=== PATIENT | male | born 1950 | race Caucasian/White ===

== ENCOUNTER 2016-12-09 05:02 | Emergency (ER) | payer OTHER, BC ==
[2016-12-09 05:11] VITALS: BMI 32.8
[2016-12-09 05:32] VITALS: BP 163/70
[2016-12-09] MEDS ORDERED: ZOFRAN INJ 4 MG VIAL IVP ONE (05:34)
[2016-12-09] MEDS ORDERED: ZOFRAN INJ 4 MG VIAL ONE (05:36)
[2016-12-09 05:43] LABS: BASOPHILS % (AUTO) 0.4 % (0.2-1.0); EOSINOPHILS # (AUTO) 0.1 x10^3/uL (0.0-0.2); EOSINOPHILS % (AUTO) 1.3 % (0.9-2.9); HEMATOCRIT 42.3 % (42.0-54.0); HEMOGLOBIN 14.6 g/dL (13.5-18.0); LYMPHOCYTES # (AUTO) 0.9 X10^3/uL (1.3-2.9); LYMPHOCYTES % (AUTO) 17.1 % (21.0-51.0); MEAN CORPUSCULAR HEMOGLOBIN 30.4 pg (27.0-34.0); MEAN CORPUSCULAR HGB CONC 34.5 g/dL (33.0-35.0); MEAN CORPUSCULAR VOLUME 88.1 fL (80.0-100.0); MEAN PLATELET VOLUME 8.4 fL (7.4-11.0); MONOCYTES # (AUTO) 0.4 x10^3/uL (0.3-0.8); MONOCYTES % (AUTO) 7.1 % (0.0-13.0); NEUTROPHILS # (AUTO) 4.1 x10^3/uL (2.2-4.8); NEUTROPHILS % (AUTO) 74.1 % (42.0-75.0); PLATELET COUNT 147 X10^3/uL (150.0-450.0); RED BLOOD COUNT 4.81 X10^6/uL (4.7-6.0); RED CELL DISTRIBUTION WIDTH 13.1 % (11.6-16.5); WHITE BLOOD COUNT 5.5 X10^3/uL (3.6-10.0)
[2016-12-09 05:53] LABS: ALANINE AMINOTRANSFERASE 27 Units/L (12-78); ALKALINE PHOSPHATASE 66 Units/L (46-116); ASPARTATE AMINO TRANSFERASE 23 Units/L (15-37); BLOOD UREA NITROGEN 29 mg/dL (7-18); CALCIUM 8.4 mg/dL (8.5-10.1); CARBON DIOXIDE 28.8 mmol/L (21-32); CHLORIDE 103 mmol/L (98-107); COR NA(FOR HYPERGLY) 143 mmol/L (136-145); CREATININE 1.09 mg/dL (0.70-1.30); GLUCOSE 184 mg/dL (65-99); SODIUM 141 mmol/L (136-145); TOTAL PROTEIN 7.3 g/dL (6.4-8.2); eGFR BLACK RACES > 60 (>60); eGFR NON BLACK RACES > 60 (>60)
[2016-12-09] MEDS ORDERED: ANTIVERT TAB 25 MG ONE (05:53)
[2016-12-09] MEDS ORDERED: NS 500 ML IV 500 ML IV ONE ×2 (05:53→06:01)
--- NOTE | 2016-12-09 05:58 | DR.GENAD ---
HPI - PCP Primary Care Physician: sanjay - HPI Comment HPI Comment: Pt awakened with nausea and spinning sensation this am ~230. He went fishing yesterday and sweated tremendously. He also has been recently diagnosed with new onset diabetes. He denies fever, chill, vomiting and diarrhea. - Complaint/Symptoms Chief Complaint Doctors Comments: "I'm dizzy and nauseated." Chief Complaint:: weak nauseated - Nurses notes reviewed Nurses Notes Review: Yes - Source History Provided: Patient - Mode of Arrival Mode of Arrival: Ambulatory - Timing Onset of Chief Complaint: 12/09/16 Came on: Suddenly, On Awakening - Duration Duration: Since Onset How lon Duration: Hours - Severity Severity: Moderate - Modifying Factors Worsens:: eyes are open Improves:: closed eye and rest PMH - PMH Past Medical History: Yes Past Medical History: Diabetes, Hypertension Past Surgical History: Yes Surgical History: Joint Replacement, Ortho Surgery - Family History History of Family Medical Conditions: Yes Family Medical History: Diabetes Mellitus, Cancer - Social History Does patient currently use any type of tobacco product: No Have you used tobacco products in the last 12 months: No Type of Tobacco Use: None Does any household member use tobacco: No Alcohol Use: None Do you use any recreational Drugs:: No Lives With: Spouse Lives Where: Home - infectious screening In the last 2 months have you had wt loss of >10#?: NO Have you had fever, night sweats or hemotysis?: No Have you traveled outside the country in the last 6 months?: No Isolation: Standard ROS - Review of Systems Constitutional: No Symptoms Reported Eyes: Blurred Vision ENTM: No Symptoms Reported Respiratoy: No Symptoms Reported Cardiovascular: No Symptoms Reported Gastrointestinal/Abdominal: See HPI, Nausea Genitourinary: No Symptoms Reported Neurological: Dizziness Musculoskeletal: No Symptoms Reported Integumentary: No Symptoms Reported Hematologic/Lymphatic: No Symptoms Reported Endocrine: No Symptoms Reported Psychiatric: No Symptoms Reported All Other Systems: Reviewed and Negative PE - Vital Signs Vitals: Temperature 97.6 F Pulse Rate [Standing] 56 Pulse Rate [Sitting] 59 Pulse Rate [Lying] 57 Pulse Rate 64 Respiratory Rate 20 Blood Pressure [Right Arm] 152/87 Blood Pressure [Standing] 166/66 Blood Pressure [Sitting] 176/77 Blood Pressure [Lying] 163/70 Blood Pressure 108/92 O2 Sat by Pulse Oximetry 96 - General Limitations: No Limitations General Appearance: Alert, In No Apparent Distress - Head Head Exam: Normal Inspection - Eyes Eye exam: Normal Appearance - ENT TM/Canal Exam: Left Normal Nose Exam: Normal Nose Exam Mouth Exam: Normal Inspection Throat Exam: Normal Inspection - Neck Neck Exam: Normal Inspection, Full ROM, Trachea Midline, Other (Right carotid bruit) - Chest Chest Inspection: Normal Inspection, Symmetric Chest Wall Rise - Respiratory Respiratory Exam: Normal Lung Sounds Bilat Respiratory Exam: Bilateral Clear to Auscultation - Cardiovascular Cardiovascular Exam: Regular Rate, Normal Rhythm, Normal Heart Sounds, Systolic Murmur - Abdominal Exam Abdominal Exam: Normal Inspection, Normal Bowel Sounds, Soft - Extremities Extremities Exam: Normal Inspection - Back Back Exam: Normal Inspection - Neurologic Neurological Exam: Alert, Oriented X3, CN II-XII Intact - Psychiatric Psychiatric Exam: Normal Affect, Normal Mood - Skin Skin Exam: Warm, Dry, Intact, Normal Color MDM - Differential Diagnosis Differential Diagnosis: vertigo, otitis, gastroenteritis, dehydration Course - Reevaluation 1st: Improved ROR - Labs Reviewed Laboratory Results Reviewed?: Yes Result Diagrams: 12/09/16 05:10 12/09/16 05:10 Laboratory: WBC 5.5 X10^3/uL (3.6-10.0) 12/09/16 05:10 RBC 4.81 X10^6/uL (4.7-6.0) 12/09/16 05:10 Hgb 14.6 g/dL (13.5-18.0) 12/09/16 05:10 Hct 42.3 % (42.0-54.0) 12/09/16 05:10 MCV 88.1 fL (80.0-100.0) 12/09/16 05:10 MCH 30.4 pg (27.0-34.0) 12/09/16 05:10 MCHC 34.5 g/dL (33.0-35.0) 12/09/16 05:10 RDW 13.1 % (11.6-16.5) 12/09/16 05:10 Plt Count 147 X10^3/uL (150.0-450.0) L 12/09/16 05:10 MPV 8.4 fL (7.4-11.0) 12/09/16 05:10 Neut % 74.1 % (42.0-75.0) 12/09/16 05:10 Lymph % 17.1 % (21.0-51.0) L 12/09/16 05:10 [place] % 7.1 % (0.0-13.0) 12/09/16 05:10 Eos % 1.3 % (0.9-2.9) 12/09/16 05:10 Baso % 0.4 % (0.2-1.0) 12/09/16 05:10 Neut # 4.1 x10^3/uL (2.2-4.8) 12/09/16 05:10 Lymph # 0.9 X10^3/uL (1.3-2.9) L 12/09/16 05:10 [place] # 0.4 x10^3/uL (0.3-0.8) 12/09/16 05:10 Eos # 0.1 x10^3/uL (0.0-0.2) 12/09/16 05:10 Baso # 0.0 X10^3/uL (0.0-0.1) 12/09/16 05:10 Absolute Nucleated RBC 0.0 /100WBC 12/09/16 05:10 Sodium 141 mmol/L (136-145) 12/09/16 05:10 Corrected Sodium 143 mmol/L (136-145) 12/09/16 05:10 Potassium 4.1 mmol/L (3.5-5.1) 12/09/16 05:10 Chloride 103 mmol/L (98-107) 12/09/16 05:10 Carbon Dioxide 28.8 mmol/L (21-32) 12/09/16 05:10 BUN 29 mg/dL (7-18) H 12/09/16 05:10 Creatinine 1.09 mg/dL (0.70-1.30) 12/09/16 05:10 Est GFR (MDRD) Af Amer > 60 (>60) 12/09/16 05:10 Est GFR (MDRD) Non-Af > 60 (>60) 12/09/16 05:10 Glucose 184 mg/dL (65-99) H 12/09/16 05:10 Calcium 8.4 mg/dL (8.5-10.1) L 12/09/16 05:10 Corrected Calcium TNP 12/09/16 05:10 Total Bilirubin 0.80 mg/dL (0.2-1.0) 12/09/16 05:10 AST 23 Units/L (15-37) 12/09/16 05:10 ALT 27 Units/L (12-78) 12/09/16 05:10 Alkaline Phosphatase 66 Units/L (46-116) 12/09/16 05:10 Total Protein 7.3 g/dL (6.4-8.2) 12/09/16 05:10 Albumin 4.0 g/dL (3.4-5.0) 12/09/16 05:10 Globulin 3.3 g/dL (2.5-4.5) 12/09/16 05:10 Albumin/Globulin Ratio 1.2 Ratio (1.1-2.1) 12/09/16 05:10 Specimen Type Clean catch urine 12/09/16 05:57 Urine Color Yellow (YELLOW) 12/09/16 05:57 Urine Appearance Clear (CLEAR) 12/09/16 05:57 Urine pH 6.0 (5.0 - 8.0) 12/09/16 05:57 Ur Specific [place] 1.025 (1.000-1.030) 12/09/16 05:57 Urine Protein 2+ (NEGATIVE) 12/09/16 05:57 Urine Glucose (UA) Negative (NEGATIVE) 12/09/16 05:57 Urine Ketones 1+ (NEGATIVE) 12/09/16 05:57 Urine Occult Blood 1+ (NEGATIVE) 12/09/16 05:57 Urine Nitrite Negative (NEGATIVE) 12/09/16 05:57 Urine Bilirubin Negative (NEGATIVE) 12/09/16 05:57 Urine Urobilinogen 1+ (NORMAL) 12/09/16 05:57 Ur Leukocyte Esterase Negative (NEGATIVE) 12/09/16 05:57 Urine RBC 0-3 /HPF (NEGATIVE) 12/09/16 05:57 Urine WBC 0-3 /HPF (NEGATIVE) 12/09/16 05:57 Ur Squamous Epith Cells Rare /HPF (NEGATIVE) 12/09/16 05:57 Urine Bacteria Trace /HPF (NEGATIVE) 12/09/16 05:57 Urine Mucus Few /HPF (NEGATIVE) 12/09/16 05:57 Ur Culture Indicated? No/not indicated 12/09/16 05:57 - Diagnosis Discharge Problem: Vertigo, Dehydration, moderate Carotid artery bruit Qualifiers: Laterality: right Qualified Code(s): R09.89 - Other specified symptoms and signs involving the circulatory and respiratory systems - Discharge Plan Disposition: 01 HOME, SELF-CARE Condition: Stable Prescriptions: Meclizine HCl [Antivert Tab 25 mg] 25 mg PO TID PRN #30 tab PRN Reason: MOTION SICKNESS - Follow ups/Referrals Follow ups/Referrals: [place] [place] [Primary Care Provider] - 3 days - Instructions Instructions: Vertigo, [id number], Labyrinthitis, [id number], Labyrinthitis , Dizziness, [id number], Dehydration, Elderly, [id number]
[2016-12-09] MEDS ORDERED: ANTIVERT TAB 25 MG PO ONE (06:01)
[2016-12-09 06:13] LABS: BILIRUBIN,URINE NEGATIVE (NEGATIVE); BLOOD/HEMOGLOBIN,URINE 1+ (NEGATIVE); GLUCOSE, URINE NEGATIVE (NEGATIVE); KETONES,URINE 1+ (NEGATIVE); LEUKOCYTE ESTERASE ,URINE NEGATIVE (NEGATIVE); NITRITES,URINE NEGATIVE (NEGATIVE); PROTEIN,URINE 2+ (NEGATIVE); UROBILINOGEN,URINE 1+ (NORMAL)
[2016-12-09 06:20] LABS: APPEARANCE,URINE CLEAR (CLEAR); BACTERIA,URINE TRACE /HPF (NEGATIVE); COLOR,URINE YELLOW (YELLOW); MUCUS,URINE FEW /HPF (NEGATIVE); RBC,URINE 0-3 /HPF (NEGATIVE); SQUAMOUS EPITHELIAL CELL,UR RARE /HPF (NEGATIVE)
--- NOTE | 2016-12-09 06:29 | CT ---
EXAM: CT BRAIN WITHOUT CONTRAST INDICATION: Dizziness COMPARISION: No Priors TECHNIQUE: Routine axial CT of the brain was performed without intravenous contrast. FINDINGS: There is mild bilateral cortical atrophy. Patchy areas of low-attenuation are identified in the periv entricular white matter bilaterally. The ventricular system is not abnormally dilated. No intra or ex tra-axial mass or hemorrhage. The gan-white junction is preserved. There is no evidence of subacute ischemic change. The basilar cisterns are clear. The skull is intact. The paranasal sinuses and mastoid air cells are clear. IMPRESSION: There is bilateral cortical atrophy. Periventricular and subcortical white matter changes are present bilaterally consistent with mild small vessel vasculopathy. No acute abnormality identified. Reported By:
[2016-12-09] MEDS ORDERED: NS 1000 ML 1,000 ML ONE (06:35)
[2016-12-09] MEDS ORDERED: NS 1000 ML 1,000 ML IV ONE (06:45)
== END 2016-12-09 07:35 | disposition home or self-care (01) ==
LOC: ER 05:22
DX: R09.89 Other specified symptoms and signs involving the circulatory and respiratory systems (principal); R42 Dizziness and giddiness; E86.0 Dehydration; G31.9 Degenerative disease of nervous system, unspecified
CPT/HCPCS: 36415; 70450; 80053; 81001; 85025; 93005; 93010; 96365; 96367; 96374; 99283; A4222; J2405

== ENCOUNTER 2021-12-25 08:22 | Observation (INO) ==
[2021-12-25] MEDS ORDERED: ASPIRIN 81 MG CHEWTAB PO ONE ×2 (08:40→08:42)
[2021-12-25] MEDS ORDERED: NITROSTAT SL PRN (08:43)
[2021-12-25] MEDS ORDERED: ASPIRIN 81 MG CHEWTAB ONE (08:44)
[2021-12-25] MEDS ORDERED: TYLENOL 325 MG TAB PO ONE ×2 (08:55→09:03)
--- NOTE | 2021-12-25 08:55 | DR.CP ---
HPI Time Seen Time Seen by Provider: 12/25/21 08:45 PCP Primary Care Physician: sanjay HPI Comment HPI Comment: PATIENT IS 71YR OLD MALE IN ER WITH CHEST PAIN SINCE 02:00 AM TO. PAIN IS CURRENTLY 610, WAS 9/10 AT O4:00 AM. PATIENT SAID PAIN IS PRESSURE AND SHARP PAIN ACROSS Complaint Chief Complaint Doctor Comments: CHEST PAIN SINCE 02:30AM TODAY. Chief Complaint:: chest pain started at 3am this morning. pt states it feels like someone is beating on his chest and both arms are numb. pt has not taken any home medications. 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 Chief Complaint: aspirin 81mg Source History Provided: Patient Mode of Arrival Mode of Arrival: Ambulatory Timing Onset of Chief Complaint: 12/25/21 PMH PMH Past Medical History: Yes Past Medical History: Diabetes and Hypertension Past Surgical History: Yes Surgical History: CABG/Valve Surgery and Ortho Surgery Family History History of Family Medical Conditions: Yes Family Medical History: Diabetes Mellitus, Cancer, [place], Coronary Artery Disease, Heart Failure, Sudden Cardiac and Hypertension Social History Do you use any recreational Drugs:: No Infectious screening In the last 2 months have you had wt loss of >10#?: NO Have you had fever, night sweats or hemotysis?: No Have you traveled outside the country in the last 6 months?: No Isolation: Standard PE Vitals Vitals: Pulse Rate 83 Respiratory Rate 17 Blood Pressure [Right Arm] 171/93 Blood Pressure [Standing] 166/66 Blood Pressure [Sitting] 176/77 Blood Pressure [Lying] 163/70 Blood Pressure 140/63 O2 Sat by Pulse Oximetry 98 ROR Labs Reviewed Result Diagrams: 12/25/21 08:37 12/25/21 08:37 Laboratory: WBC 2.7 X10^3/uL (3.6-10.0) L 12/25/21 08:37 RBC 4.10 X10^6/uL (4.7-6.0) L 12/25/21 08:37 Hgb 12.9 g/dL (13.5-18.0) L 12/25/21 08:37 Hct 36.6 % (42.0-54.0) L 12/25/21 08:37 MCV 89.3 fL (80.0-100.0) 12/25/21 08:37 MCH 31.4 pg (27.0-34.0) 12/25/21 08:37 MCHC 35.1 g/dL (33.0-35.0) H 12/25/21 08:37 RDW 12.9 % (11.6-16.5) 12/25/21 08:37 Plt Count 150 X10^3/uL (150.0-450.0) 12/25/21 08:37 Plt Count Comment Adequate (ADEQUATE) 12/25/21 08:37 MPV 7.5 fL (7.4-11.0) 12/25/21 08:37 Neut % (Auto) 79.9 % (42.0-75.0) H 12/25/21 08:37 Lymph % (Auto) 8.9 % (21.0-51.0) L 12/25/21 08:37 Power % (Auto) 9.1 % (0.0-13.0) 12/25/21 08:37 Eos % (Auto) 1.9 % (0.9-2.9) 12/25/21 08:37 Baso % (Auto) 0.2 % (0.2-1.0) 12/25/21 08:37 Neut # (Auto) 2.1 x10^3/uL (2.2-4.8) L 12/25/21 08:37 Lymph # (Auto) 0.2 X10^3/uL (1.3-2.9) L 12/25/21 08:37 Power # (Auto) 0.2 x10^3/uL (0.3-0.8) L 12/25/21 08:37 Eos # (Auto) 0.1 x10^3/uL (0.0-0.2) 12/25/21 08:37 Baso # (Auto) 0.0 X10^3/uL (0.0-0.1) 12/25/21 08:37 Absolute Nucleated RBC 0.0 /100WBC 12/25/21 08:37 Total Counted 100 12/25/21 08:37 Neutrophils % (Manual) 81 % (39-76) H 12/25/21 08:37 Lymphocytes % (Manual) 10 % (13-43) L 12/25/21 08:37 Monocytes % (Manual) 7 % (4-9) 12/25/21 08:37 Eosinophils % (Manual) 2 % (0-6) 12/25/21 08:37 Plt Morphology Comment Normal (NORMAL) 12/25/21 08:37 RBC Morphology Normal (NORMAL) 12/25/21 08:37 D-Dimer 0.82 ug/ml (0.0-0.57) H 12/25/21 08:37 Sodium 135 mmol/L (136-145) L 12/25/21 08:37 Corrected Sodium 137 mmol/L (136-145) 12/25/21 08:37 Potassium 4.0 mmol/L (3.5-5.1) 12/25/21 08:37 Chloride 100 mmol/L (98-107) 12/25/21 08:37 Carbon Dioxide 24.3 mmol/L (21-32) 12/25/21 08:37 BUN 21 mg/dL (7-18) H 12/25/21 08:37 Creatinine 0.98 mg/dL (0.70-1.30) 12/25/21 08:37 Est GFR (MDRD) Af Amer > 60 (>60) 12/25/21 08:37 Est GFR (MDRD) Non-Af > 60 (>60) 12/25/21 08:37 Glucose 203 mg/dL (65-99) H 12/25/21 08:37 Calcium 8.2 mg/dL (8.5-10.1) L 12/25/21 08:37 Corrected Calcium TNP 12/25/21 08:37 Total Bilirubin 0.70 mg/dL (0.2-1.0) 12/25/21 08:37 AST 30 Units/L (15-37) 12/25/21 08:37 ALT 25 Units/L (12-78) 12/25/21 08:37 Alkaline Phosphatase 85 Units/L (46-116) 12/25/21 08:37 Creatine Kinase 37 Units/L (39-308) L 12/25/21 08:37 Troponin I High Sens 7.9 ng/L (4.0-60.0) 12/25/21 08:37 B-Natriuretic Peptide 49.5 pg/mL (0-79) 12/25/21 08:37 Total Protein 6.9 g/dL (6.4-8.2) 12/25/21 08:37 Albumin 3.7 g/dL (3.4-5.0) 12/25/21 08:37 Globulin 3.2 g/dL (2.5-4.5) 12/25/21 08:37 Albumin/Globulin Ratio 1.2 Ratio (1.1-2.1) 12/25/21 08:37 Opioid Opioid Risk Tool Total: 0 Total Score Risk Category: Low Risk Copyright: Crispin SILVA predicting aberrant behaviors Discharge Plan Discharge Plan Patient Disposition: 01 HOME, SELF-CARE Condition: Stable Orders to Discharge Patient Discharge Orders: Transfer (Routine); Ordered 12/25/21 Ordered By: JAJA SURESH
[2021-12-25 09:06] LABS: BASOPHILS % (AUTO) 0.2 % (0.2-1.0); EOSINOPHILS # (AUTO) 0.1 x10^3/uL (0.0-0.2); EOSINOPHILS % (AUTO) 1.9 % (0.9-2.9); HEMATOCRIT 36.6 % (42.0-54.0); HEMOGLOBIN 12.9 g/dL (13.5-18.0); LYMPHOCYTES # (AUTO) 0.2 X10^3/uL (1.3-2.9); LYMPHOCYTES % (AUTO) 8.9 % (21.0-51.0); MEAN CORPUSCULAR HEMOGLOBIN 31.4 pg (27.0-34.0); MEAN CORPUSCULAR HGB CONC 35.1 g/dL (33.0-35.0); MEAN CORPUSCULAR VOLUME 89.3 fL (80.0-100.0); MEAN PLATELET VOLUME 7.5 fL (7.4-11.0); MONOCYTES # (AUTO) 0.2 x10^3/uL (0.3-0.8); MONOCYTES % (AUTO) 9.1 % (0.0-13.0); NEUTROPHILS # (AUTO) 2.1 x10^3/uL (2.2-4.8); NEUTROPHILS % (AUTO) 79.9 % (42.0-75.0); RED CELL DISTRIBUTION WIDTH 12.9 % (11.6-16.5); WHITE BLOOD COUNT 2.7 X10^3/uL (3.6-10.0)
[2021-12-25 09:19] LABS: ALANINE AMINOTRANSFERASE 25 Units/L (12-78); ALBUMIN 3.7 g/dL (3.4-5.0); ALKALINE PHOSPHATASE 85 Units/L (46-116); ASPARTATE AMINO TRANSFERASE 30 Units/L (15-37); BLOOD UREA NITROGEN 21 mg/dL (7-18); CALCIUM 8.2 mg/dL (8.5-10.1); CARBON DIOXIDE 24.3 mmol/L (21-32); CHLORIDE 100 mmol/L (98-107); COR NA(FOR HYPERGLY) 137 mmol/L (136-145); CREATINE KINASE 37 Units/L (39-308); CREATININE 0.98 mg/dL (0.70-1.30); SODIUM 135 mmol/L (136-145); TOTAL PROTEIN 6.9 g/dL (6.4-8.2); eGFR NON BLACK RACES > 60 (>60)
[2021-12-25 09:32] LABS: PLATELET MORPHOLOGY COMMENT NORMAL (NORMAL)
[2021-12-25] MEDS ORDERED: BENTYL I.M. INJ 10 MG IM ONE (09:47)
[2021-12-25] MEDS ORDERED: NS 100 ML IV 100 ML ONE (10:08)
--- NOTE | 2021-12-25 11:53 | CT ---
HISTORYpt states chest pain with bilateral arm numbness onset about 3am.brelevated d dimerSTUDYCTA CHESTCOMPARISONNoneTECHNIQUECT images of the chest were obtained after IV contrast administration per protocol. Automatic exposure control was utilized. MIP images provided and reviewed.FINDINGSThere is multilevel spine degenerative disease. No acute osseous abnormality. The upper abdomen is grossly unremarkable for technique.The heart size is normal. No significant pericardial thickening or pericardial effusion. There is severe coronary artery calcification. The ascending aorta measures approximately 4.5 cm in diameter. The aortic arch and descending thoracic aorta are normal in caliber. No bulky intrathoracic lymph nodes. No pulmonary arterial filling defect is identified. The lungs are essentially clear without focal consolidation, pleural effusion, or pneumothorax. There is minimal dependent bilateral lower lobe atelectasis. The large airways are patent.IMPRESSIONNo evidence for PTE or other acute cardiopulmonary abnormality.Ascending aortic dilatation measuring 4.5 cm in diameter. Severe coronary artery disease.Electronically signed by: BRANDON LOERA (Dec 25, 2021 11:51:56)
[2021-12-25] MEDS ORDERED: TORADOL 15 MG VIAL IVP ONE (13:04)
[2021-12-25] MEDS ORDERED: TORADOL 15 MG VIAL ONE (13:05)
[2021-12-25] MEDS ORDERED: NS 1,000 ML IV 1,000 ML IV SCH (14:00)
[2021-12-25 14:31] VITALS: BMI 30.7
[2021-12-25] MEDS: TYLENOL 325 MG TAB PO PRN ×2 (16:44→20:20)
[2021-12-26] MEDS: TYLENOL 325 MG TAB PO PRN ×2 (06:21→17:49)
[2021-12-26 07:24] LABS: BASOPHILS % (AUTO) 0.4 % (0.2-1.0); EOSINOPHILS % (AUTO) 0.2 % (0.9-2.9); HEMATOCRIT 33.1 % (42.0-54.0); HEMOGLOBIN 11.9 g/dL (13.5-18.0); LYMPHOCYTES # (AUTO) 0.2 X10^3/uL (1.3-2.9); LYMPHOCYTES % (AUTO) 16.2 % (21.0-51.0); MEAN CORPUSCULAR HEMOGLOBIN 31.7 pg (27.0-34.0); MEAN CORPUSCULAR HGB CONC 35.8 g/dL (33.0-35.0); MEAN CORPUSCULAR VOLUME 88.5 fL (80.0-100.0); MEAN PLATELET VOLUME 7.5 fL (7.4-11.0); MONOCYTES # (AUTO) 0.4 x10^3/uL (0.3-0.8); MONOCYTES % (AUTO) 27.9 % (0.0-13.0); NEUTROPHILS # (AUTO) 0.8 x10^3/uL (2.2-4.8); NEUTROPHILS % (AUTO) 55.3 % (42.0-75.0); RED BLOOD COUNT 3.74 X10^6/uL (4.7-6.0); RED CELL DISTRIBUTION WIDTH 13.1 % (11.6-16.5)
[2021-12-26 07:28] LABS: WHITE BLOOD COUNT 1.5 X10^3/uL (3.6-10.0)
[2021-12-26 07:39] LABS: ALANINE AMINOTRANSFERASE 42 Units/L (12-78); ALBUMIN 3.3 g/dL (3.4-5.0); ALKALINE PHOSPHATASE 63 Units/L (46-116); ASPARTATE AMINO TRANSFERASE 59 Units/L (15-37); BLOOD UREA NITROGEN 20 mg/dL (7-18); CALCIUM 7.6 mg/dL (8.5-10.1); CARBON DIOXIDE 24.4 mmol/L (21-32); CHLORIDE 100 mmol/L (98-107); COR CA(FOR HYPOALB) 8.2 mg/dL (8.5-10.1); COR NA(FOR HYPERGLY) 137 mmol/L (136-145); CREATININE 1.06 mg/dL (0.70-1.30); SODIUM 134 mmol/L (136-145); TOTAL PROTEIN 6.2 g/dL (6.4-8.2); eGFR NON BLACK RACES > 60 (>60)
[2021-12-26 10:13] LABS: PLATELET MORPHOLOGY COMMENT NORMAL (NORMAL)
[2021-12-26] MEDS ORDERED: REMDESIVIR 200 MG in NS 250 ML IV 250 ML IV ONE (11:04)
[2021-12-26] MEDS ORDERED: ZITHROMAX INJ 500 MG VIAL 500 MG in NS 250 ML IV 250 ML IV SCH (11:04)
[2021-12-26] MEDS ORDERED: PATIENT'S HOME MEDICATION (Aspirin 81 mg Capsule) PO SCH ×2 (11:15→12:00)
[2021-12-26] MEDS: SYNTHROID 50 mcg TAB PO SCH (12:49)
[2021-12-26] MEDS: TOPROL XL PO SCH (12:49)
[2021-12-26] MEDS: ROBITUSSIN DM PO SCH ×3 (12:49→21:10)
[2021-12-26] MEDS: PROTONIX INJ 40 MG VIAL IVP SCH (12:49)
[2021-12-26] MEDS: NS 1,000 ML IV 1,000 ML IV SCH ×2 (12:49→23:25)
[2021-12-26] MEDS: PLAVIX PO SCH (12:49)
[2021-12-26] MEDS: NovoLIN R (or HumuLIN R) SUBCUT PRN ×3 (12:50→21:12)
--- NOTE | 2021-12-26 14:59 | DR.H&P ---
H&P - History & Physical for Day of: H&P Date: 12/25/21 - Chief Complaint Chief Complaint: CHEST PAIN, COUGH - History of Present Illness History of Present Illness: PT IS 71 WM, PT OF DR TIDWELL, ER ADMISSION WITH CO CHEST PAIN. PT DENIES ANY FEVER OR RESPIRATORY DISTRESS. PT HAS KNOWN CAD, FOLLOWED [facility] IN [place]. PT WAS COVID 19+ ON ER ARRIVAL WITH REPORTS OF ELEVATED BS AND COUGH. PT HAD ELEVATED DDIMER, CTA OF LUNGS NEGATIVE FOR PE. PT IS DM WITH HYPERTENSION. PT ADMITTED FOR TREATMENT OF ACUTE ILLNESS. - Past Medical History Past Medical History: Coronary Artery Disease, Diabetes, Hypertension - Past Surgical History Surgical History: Angioplasty/Stents, CABG/Valve Surgery Additional Surgical History: LEFT ENDARTERECTOMY - Family History Family Medical History: Diabetes Mellitus, Cancer, [place], Coronary Artery Disease, Heart Failure, Sudden Cardiac , Hypertension - Social History Does patient currently use any type of tobacco product: No Have you used tobacco products in the last 12 months: No Type of Tobacco Use: None Does any household member use tobacco: No Alcohol Use: None Drug Use: None - Medications Home Medications: codeine Allergy (Verified 12/25/21 08:37) CONTINUE taking the following medications amlodipine 5 mg tablet 0.5 tab PO QPM 12/25/21 [History] aspirin 81 mg capsule 81 mg PO QDAY 12/25/21 [History] cholecalciferol (vitamin D3) 125 mcg (5,000 unit) tablet (Vitamin D3) 125 mcg PO QDAY 12/25/21 [History] citalopram 20 mg tablet 1 tab PO QDAY 12/25/21 [History] clopidogrel 75 mg tablet 1 tab PO QDAY 12/25/21 [History] dulaglutide 1.5 mg/0.5 mL subcutaneous pen injector (Trulicity) 1.5 mg subcut QWEEK 12/25/21 [History] levothyroxine 50 mcg tablet 1 tab PO QDAY 12/25/21 [History] lisinopril 20 mg tablet 1 tab PO BID 12/25/21 [History] metformin 1,000 mg tablet 1 tab PO BID 12/25/21 [History] metoprolol succinate 50 mg tablet,extended release 24 hr 1 tab PO QDAY 12/25/21 [History] rosuvastatin 40 mg tablet 1 tab PO QPM 12/25/21 [History] - Review of Systems Constitutional: Malaise Eyes: No Symptoms Reported ENT: No Symptoms Reported Respiratory: Cough Cardiovascular: Chest Pain Gastrointestinal: No Symptoms Reported Genitourinary: No Symptoms Reported Musculoskeletal: No Symptoms Reported Skin: No Symptoms Reported Neurological: No Symptoms Reported - Physical Exam Vital Signs: Temperature 98.5 F Pulse Rate [Left Brachial] 78 Pulse Rate [Right Radial] 72 Pulse Rate 82 Respiratory Rate 20 Blood Pressure [Right Arm] 123/88 Blood Pressure [Standing] 166/66 Blood Pressure [Sitting] 176/77 Blood Pressure [Lying] 163/70 Blood Pressure 140/63 O2 Sat by Pulse Oximetry 100 Oriented: Normal Eyes: Normal Ear: Normal Nose: Normal Throat: Normal Respiratory: Wheezes Throughout (BIALTERAL UPPER EXPIRATORY WHEEZING), RLL Diminished, LLL Diminished Cardiovascular: Normal : Normal Auscultation: Bowel Sounds: Normal Palpation: Normal Tenderness: Normal Skin: Normal Musculoskeletal: Normal Psychiatric: Normal Mood Description: Calm Speech Pattern: Clear, Appropriate - Assessment/Plan (1) Chest pain Status: Acute Plan: ADMIT, SERIAL CE AND EKG. CTA OF LUNGS OBTAINED ON ADMISSION IN ER. RESP CONSULT, COVID 19 PRECAUTIONS. VERIFY HOME MEDICATION, BP CONTROL AND BS CONTROL. SSI (2) Bronchitis due to COVID-19 virus Status: Acute (3) CAD (coronary artery disease) Status: Acute (4) Diabetes Status: Acute (5) Carotid arterial disease Status: Acute - Allergies Allergies/Adverse Reactions: Allergies Allergy/AdvReac Type Severity Reaction Status Date / Time codeine Allergy Verified 12/25/21 08:37
[2021-12-26] MEDS ORDERED: ZOFRAN INJ 4 MG VIAL IVP PRN (15:01)
--- NOTE | 2021-12-26 15:05 | PCM.PROG ---
Progress Note - Progress Note for Day of Date of Exam: 12/26/21 - Subjective Subjective: PT IS 71 WM ER ADMISSION WITH CHEST PAIN AND COVID 19+ BRONCHITIS. PT HAS PMH OF CAD AND DM. HOME MEDICATION FOR MANAGEMENT HAS BEEN RESUMED. HOLDING METFORMIN DUE TO GI UPSET. WILL CONTINUE SSI COVERAGE. PT RECEIVEING IV REMDESIVIR AND ZITHROMAX. RESP THERAPY AND PRN SUPPLEMENTAL O2. CONTINUE CARDIAC MONITORING AND REPEAT AM CXR. - Past Medical Family Social History Past Med/Fam/Surg Hx: No changes since H&P Allergies: Allergies codeine Allergy (Verified 12/25/21 08:37) - Review of Systems ROS: No change since H&P - Vital Signs and I&O's Vital Signs: Temperature 98.5 F Pulse Rate [Left Brachial] 78 Pulse Rate [Right Radial] 72 Pulse Rate 82 Respiratory Rate 20 Blood Pressure [Right Arm] 123/88 Blood Pressure [Standing] 166/66 Blood Pressure [Sitting] 176/77 Blood Pressure [Lying] 163/70 Blood Pressure 140/63 O2 Sat by Pulse Oximetry 100 Intake and Output: Intake & Output 12/24/21 12/25/21 12/26/21 12/27/21 11:59 11:59 11:59 11:59 Intake Total 1883 / 1883 Balance 1883 - Physical Exam Oriented: Normal Eyes: Normal Ear: Normal Nose: Normal Throat: Normal Respiratory: Diminished, Wheezes (MILD BILATERAL UPPER EXP WHEEZES) Cardiovascular: Normal : Normal Auscultation: Bowel Sounds: Normal Tenderness: Normal Skin: Normal Musculoskeletal: Normal Psychiatric: Normal Mood Description: Calm Speech Pattern: Clear, Appropriate - Laboratory and Diagnostics Result Diagrams: 12/26/21 07:02 12/26/21 07:02 Labs: Laboratory WBC 1.5 X10^3/uL (3.6-10.0) L* 12/26/21 07:02 RBC 3.74 X10^6/uL (4.7-6.0) L 12/26/21 07:02 Hgb 11.9 g/dL (13.5-18.0) L 12/26/21 07:02 Hct 33.1 % (42.0-54.0) L 12/26/21 07:02 MCV 88.5 fL (80.0-100.0) 12/26/21 07:02 MCH 31.7 pg (27.0-34.0) 12/26/21 07:02 MCHC 35.8 g/dL (33.0-35.0) H 12/26/21 07:02 RDW 13.1 % (11.6-16.5) 12/26/21 07:02 Plt Count 122 X10^3/uL (150.0-450.0) L 12/26/21 07:02 Plt Count Comment Decreased (ADEQUATE) 12/26/21 07:02 MPV 7.5 fL (7.4-11.0) 12/26/21 07:02 Neut % (Auto) 55.3 % (42.0-75.0) 12/26/21 07:02 Lymph % (Auto) 16.2 % (21.0-51.0) L 12/26/21 07:02 [place] % (Auto) 27.9 % (0.0-13.0) H 12/26/21 07:02 Eos % (Auto) 0.2 % (0.9-2.9) L 12/26/21 07:02 Baso % (Auto) 0.4 % (0.2-1.0) 12/26/21 07:02 Neut # (Auto) 0.8 x10^3/uL (2.2-4.8) L 12/26/21 07:02 Lymph # (Auto) 0.2 X10^3/uL (1.3-2.9) L 12/26/21 07:02 [place] # (Auto) 0.4 x10^3/uL (0.3-0.8) 12/26/21 07:02 Eos # (Auto) 0.0 x10^3/uL (0.0-0.2) 12/26/21 07:02 Baso # (Auto) 0.0 X10^3/uL (0.0-0.1) 12/26/21 07:02 Absolute Nucleated RBC 0.1 /100WBC 12/26/21 07:02 Total Counted 100 12/26/21 07:02 Neutrophils % (Manual) 61 % (39-76) 12/26/21 07:02 Lymphocytes % (Manual) 17 % (13-43) 12/26/21 07:02 Monocytes % (Manual) 22 % (4-9) H 12/26/21 07:02 Eosinophils % (Manual) 2 % (0-6) 12/25/21 08:37 Plt Morphology Comment Normal (NORMAL) 12/26/21 07:02 RBC Morphology Normal (NORMAL) 12/26/21 07:02 D-Dimer 0.82 ug/ml (0.0-0.57) H 12/25/21 08:37 Sodium 134 mmol/L (136-145) L 12/26/21 07:02 Corrected Sodium 137 mmol/L (136-145) 12/26/21 07:02 Potassium 4.0 mmol/L (3.5-5.1) 12/26/21 07:02 Chloride 100 mmol/L (98-107) 12/26/21 07:02 Carbon Dioxide 24.4 mmol/L (21-32) 12/26/21 07:02 BUN 20 mg/dL (7-18) H 12/26/21 07:02 Creatinine 1.06 mg/dL (0.70-1.30) 12/26/21 07:02 Est GFR (MDRD) Af Amer > 60 (>60) 12/26/21 07:02 Est GFR (MDRD) Non-Af > 60 (>60) 12/26/21 07:02 Glucose 214 mg/dL (65-99) H 12/26/21 07:02 POC Glucose (mg/dL) 275 mg/dL (65-99) H 12/26/21 10:55 Calcium 7.6 mg/dL (8.5-10.1) L 12/26/21 07:02 Corrected Calcium 8.2 mg/dL (8.5-10.1) L 12/26/21 07:02 Total Bilirubin 0.40 mg/dL (0.2-1.0) 12/26/21 07:02 AST 59 Units/L (15-37) H 12/26/21 07:02 ALT 42 Units/L (12-78) 12/26/21 07:02 Alkaline Phosphatase 63 Units/L (46-116) 12/26/21 07:02 Creatine Kinase 42 Units/L (39-308) 12/25/21 21:45 Troponin I High Sens 13.6 ng/L (4.0-60.0) 12/25/21 21:45 C-Reactive Protein 10.00 mg/L (0-3.0) H 12/26/21 07:02 B-Natriuretic Peptide 49.5 pg/mL (0-79) 12/25/21 08:37 Total Protein 6.2 g/dL (6.4-8.2) L 12/26/21 07:02 Albumin 3.3 g/dL (3.4-5.0) L 12/26/21 07:02 Globulin 2.9 g/dL (2.5-4.5) 12/26/21 07:02 Albumin/Globulin Ratio 1.1 Ratio (1.1-2.1) 12/26/21 07:02 SARS-CoV-2 (PCR) Positive (NEGATIVE) A 12/25/21 13:20 Influenza Type A (PCR) Negative (NEGATIVE) 12/25/21 13:20 Influenza Type B (PCR) Negative (NEGATIVE) 12/25/21 13:20 RSV (PCR) Negative (NEGATIVE) 12/25/21 13:20 - Plan (1) Bronchitis due to COVID-19 virus Status: Acute Plan: SERIAL CE AND EKG, IV ZITHROMAX AND REMESIVIR. CTA OF LUNGS OBTAINED ON ADMISSION IN ER. RESP CONSULT, COVID 19 PRECAUTIONS. BP CONTROL AND BS CONTROL. SSI (2) Chest pain Status: Acute (3) CAD (coronary artery disease) Status: Acute (4) Diabetes Status: Acute (5) Carotid arterial disease Status: Acute
[2021-12-26] MEDS ORDERED: ZESTRIL TAB 20 MG ONE (20:29)
[2021-12-26] MEDS ORDERED: NORVASC TAB 5 MG PO SCH (21:00)
[2021-12-26] MEDS ORDERED: PATIENT'S HOME MEDICATION (Rosuvastatin 40 mg tablet) PO SCH ×2 (21:00)
[2021-12-26] MEDS: ZESTRIL TAB 20 MG PO SCH (21:11)
[2021-12-26] MEDS: SNACK - Diabetic Appropriate PO SCH (21:11)
[2021-12-27] MEDS: NS 1,000 ML IV 1,000 ML IV SCH ×3 (02:19→20:00)
[2021-12-27] MEDS: TESSALON PERLES PO PRN ×2 (03:56→20:44)
[2021-12-27 05:43] LABS: BASOPHILS % (AUTO) 0.2 % (0.2-1.0); EOSINOPHILS % (AUTO) 0.1 % (0.9-2.9); HEMATOCRIT 35.3 % (42.0-54.0); HEMOGLOBIN 12.4 g/dL (13.5-18.0); LYMPHOCYTES # (AUTO) 0.7 X10^3/uL (1.3-2.9); LYMPHOCYTES % (AUTO) 34.5 % (21.0-51.0); MEAN CORPUSCULAR HEMOGLOBIN 31.2 pg (27.0-34.0); MEAN CORPUSCULAR HGB CONC 35.1 g/dL (33.0-35.0); MEAN CORPUSCULAR VOLUME 88.8 fL (80.0-100.0); MEAN PLATELET VOLUME 7.8 fL (7.4-11.0); MONOCYTES # (AUTO) 0.4 x10^3/uL (0.3-0.8); MONOCYTES % (AUTO) 21.8 % (0.0-13.0); NEUTROPHILS # (AUTO) 0.8 x10^3/uL (2.2-4.8); NEUTROPHILS % (AUTO) 43.4 % (42.0-75.0); RED BLOOD COUNT 3.98 X10^6/uL (4.7-6.0)
[2021-12-27 05:49] LABS: WHITE BLOOD COUNT 1.9 X10^3/uL (3.6-10.0)
[2021-12-27 05:53] LABS: ALANINE AMINOTRANSFERASE 44 Units/L (12-78); ALBUMIN 3.3 g/dL (3.4-5.0); ALKALINE PHOSPHATASE 65 Units/L (46-116); ASPARTATE AMINO TRANSFERASE 57 Units/L (15-37); BLOOD UREA NITROGEN 14 mg/dL (7-18); CALCIUM 7.6 mg/dL (8.5-10.1); CARBON DIOXIDE 26.8 mmol/L (21-32); CHLORIDE 99 mmol/L (98-107); COR CA(FOR HYPOALB) 8.2 mg/dL (8.5-10.1); COR NA(FOR HYPERGLY) 135 mmol/L (136-145); SODIUM 134 mmol/L (136-145); TOTAL PROTEIN 6.5 g/dL (6.4-8.2); eGFR NON BLACK RACES > 60 (>60)
[2021-12-27 06:13] LABS: METAMYELOCYTES % 4; MYELOCYTES % 1
[2021-12-27 06:14] LABS: PLATELET MORPHOLOGY COMMENT NORMAL (NORMAL)
--- NOTE | 2021-12-27 06:48 | RAD ---
HISTORYCOVID-19 chest pain SOBSTUDYPortable AP chestCOMPARISONCTA chest December 25, 2021FINDINGSHeart size normal. There are bilateral coarse interstitial densities in the perihilar and lower lobe areas without evidence for consolidation or pleural fluid. The upper lobes are clear.IMPRESSIONWith the COVID history the radiographic findings are suspect for mild atypical pneumonia. No localized consolidation, pulmonary edema or pleural fluid component is noted.Electronically signed by: MADELAINE HODGE (Dec 27, 2021 06:46:40)
[2021-12-27] MEDS ORDERED: ZESTRIL TAB 20 MG ONE ×2 (08:11→20:13)
[2021-12-27] MEDS: XOPENEX 1.25 MG/3 ML NEBULE NEB SCH ×3 (08:33→21:00)
[2021-12-27] MEDS: PULMICORT NEB TX 0.5 MG NEB SCH ×2 (08:39→21:00)
[2021-12-27] MEDS ORDERED: NORVASC TAB 2.5 MG ONE (09:23)
[2021-12-27] MEDS: ZINC SULFATE PO SCH (09:25)
[2021-12-27] MEDS: ROBITUSSIN DM PO SCH ×4 (09:25→20:43)
[2021-12-27] MEDS: ASPIRIN EC 81 MG PO SCH (09:26)
[2021-12-27] MEDS: VITAMIN C PO SCH ×2 (09:26→20:43)
[2021-12-27] MEDS: NORVASC TAB 2.5 MG PO ONE ×2 (09:26→09:30)
[2021-12-27] MEDS: PLAVIX PO SCH (09:27)
[2021-12-27] MEDS: SYNTHROID 50 mcg TAB PO SCH (09:27)
[2021-12-27] MEDS: TOPROL XL PO SCH (09:28)
[2021-12-27] MEDS: ZESTRIL TAB 20 MG PO SCH ×2 (09:28→20:41)
[2021-12-27] MEDS: REMDESIVIR 100 MG in NS 100 ML IV 120 ML IV SCH (09:29)
[2021-12-27] MEDS: PROTONIX INJ 40 MG VIAL IVP SCH (09:29)
[2021-12-27] MEDS: LEVAQUIN PREMIX IV 500 MG 500 MG/100 ML BAG IV SCH (10:25)
[2021-12-27] MEDS: LOVENOX INJ 40 MG SYR SC SCH (10:25)
[2021-12-27] MEDS: NovoLIN R (or HumuLIN R) SUBCUT PRN ×2 (11:33→20:44)
[2021-12-27] MEDS: SNACK - Diabetic Appropriate PO SCH (20:41)
[2021-12-27] MEDS: CRESTOR TAB 10 MG PO SCH (20:42)
[2021-12-27] MEDS: COLACE CAP 100 MG PO SCH (20:42)
[2021-12-27] MEDS: NORVASC TAB 5 MG PO SCH (20:42)
[2021-12-28] MEDS: ROBITUSSIN DM PO SCH ×5 (02:13→20:28)
[2021-12-28] MEDS: NS 1,000 ML IV 1,000 ML IV SCH ×2 (05:23→19:51)
[2021-12-28] MEDS: XOPENEX 1.25 MG/3 ML NEBULE NEB SCH ×3 (06:00→20:50)
[2021-12-28 06:16] LABS: BASOPHILS % (AUTO) 0.3 % (0.2-1.0); EOSINOPHILS % (AUTO) 0.7 % (0.9-2.9); HEMATOCRIT 41.4 % (42.0-54.0); HEMOGLOBIN 14.5 g/dL (13.5-18.0); LYMPHOCYTES # (AUTO) 1.1 X10^3/uL (1.3-2.9); LYMPHOCYTES % (AUTO) 45.6 % (21.0-51.0); MEAN CORPUSCULAR HEMOGLOBIN 31.2 pg (27.0-34.0); MEAN CORPUSCULAR HGB CONC 35.1 g/dL (33.0-35.0); MEAN CORPUSCULAR VOLUME 88.9 fL (80.0-100.0); MEAN PLATELET VOLUME 7.7 fL (7.4-11.0); MONOCYTES # (AUTO) 0.3 x10^3/uL (0.3-0.8); MONOCYTES % (AUTO) 12.9 % (0.0-13.0); NEUTROPHILS % (AUTO) 40.5 % (42.0-75.0); RED BLOOD COUNT 4.66 X10^6/uL (4.7-6.0); RED CELL DISTRIBUTION WIDTH 13.1 % (11.6-16.5); WHITE BLOOD COUNT 2.5 X10^3/uL (3.6-10.0)
[2021-12-28 06:40] LABS: ALANINE AMINOTRANSFERASE 46 Units/L (12-78); ALBUMIN 3.9 g/dL (3.4-5.0); ALKALINE PHOSPHATASE 81 Units/L (46-116); ASPARTATE AMINO TRANSFERASE 52 Units/L (15-37); BLOOD UREA NITROGEN 16 mg/dL (7-18); CALCIUM 8.2 mg/dL (8.5-10.1); CHLORIDE 99 mmol/L (98-107); COR NA(FOR HYPERGLY) 137 mmol/L (136-145); CREATININE 1.06 mg/dL (0.70-1.30); SODIUM 135 mmol/L (136-145); TOTAL PROTEIN 7.7 g/dL (6.4-8.2); eGFR NON BLACK RACES > 60 (>60)
--- NOTE | 2021-12-28 07:18 | RAD ---
HISTORYPNEUMONIA; COVID+; SOBSTUDYCHEST, 1 [id number]/12/2022.TECHNIQUEAP view of the chestFINDINGSCardiac and mediastinal contours are within normal limits. Similar appearance of mild bilateral interstitial opacities. No consolidation or segmental lung collapse. No definite pleural effusion or pneumothorax.IMPRESSIONNo significant change compared to prior radiograph.Electronically signed by: Johnathan Lockett (Dec 28, 2021 07:17:11)
[2021-12-28] MEDS ORDERED: ZESTRIL TAB 20 MG ONE ×2 (08:18→20:05)
[2021-12-28] MEDS: PULMICORT NEB TX 0.5 MG NEB SCH ×2 (08:20→20:50)
[2021-12-28] MEDS: LEVAQUIN PREMIX IV 500 MG 500 MG/100 ML BAG IV SCH (08:23)
[2021-12-28] MEDS: PROTONIX INJ 40 MG VIAL IVP SCH (08:25)
[2021-12-28] MEDS: ASPIRIN EC 81 MG PO SCH (08:26)
[2021-12-28] MEDS: ZINC SULFATE PO SCH (08:26)
[2021-12-28] MEDS: TOPROL XL PO SCH (08:26)
[2021-12-28] MEDS: SYNTHROID 50 mcg TAB PO SCH (08:26)
[2021-12-28] MEDS: ZESTRIL TAB 20 MG PO SCH ×2 (08:27→20:27)
[2021-12-28] MEDS: MILK OF MAGNESIA PO SCH (08:27)
[2021-12-28] MEDS: PLAVIX PO SCH (08:27)
[2021-12-28] MEDS: LOVENOX INJ 40 MG SYR SC SCH (08:28)
[2021-12-28] MEDS: VITAMIN D3 125 mcg (5,000 UNITS) PO SCH (10:06)
[2021-12-28] MEDS: VITAMIN C PO SCH ×2 (10:10→20:28)
[2021-12-28] MEDS: REMDESIVIR 100 MG in NS 100 ML IV 120 ML IV SCH (10:10)
[2021-12-28] MEDS: NovoLIN R (or HumuLIN R) SUBCUT PRN ×3 (11:45→20:29)
--- NOTE | 2021-12-28 13:28 | PCM.PROG ---
Progress Note - Progress Note for Day of Date of Exam: 12/27/21 - Subjective Subjective: WAS ADMITTED ON 12/25 FOR TREATMENT OF PNEUMONIA DUE TO COVID-19, CHEST PAIN, AND SHORTNESS OF BREATH. HE HAS A PMH OF DM II, [place], SEVERE CAD, HTN. HE HAS CARDIAC STENTS AND HAS HAD LEFT ENDARTERECTOMY. TODAY, HE IS ALERT AND ORIENTED, LYING IN BED ON MORNING ROUNDS. HE CONTINUES WITH COMPLAINTS OF COUGH, SHORTNESS OF BREATH, AND GENERALIZED WEAKNESS. HE ALSO COMPLAINS OF INTERMITTENT CHEST DISCOMFORT AND TIGHTNESS. CARDIAC ENZYMES HAVE BEEN NORMAL. ON EXAMINATION, HEART IS REGULAR IN RATE AND RHYTHM. BILATERAL LUNGS ARE NOTED WITH RHONCHI THROUGHOUT. ABDOMEN IS ROUND, SOFT, AND NON-TENDER WITH NORMAL BOWEL SOUNDS NOTED IN ALL QUADRANTS. NO UPPER OR LOWER EXTREMITY EDEMA IS NOTED. HER VITALS THIS MORNING ARE: 99.3-68-20-95%-173/81. LABS WERE OBTAINED. WBC 1.9, RBC 3.98, HGB 12.4, HCT 35.3, PLT COUNT 118, SODIUM 134, POTASSIUM 4.0, CHLORIDE 99, BUN 14, CREATININE 1.00, GLUCOSE 162, CALCIUM 7.6, AST 57, ALT 44, ALK PHOS 65, CRP 7.20, BNP 88.7, TOTAL PROTEIN 6.5, ALBUMIN 3.3. RESPIRATORY VITAL PANEL WAS SET UP. A CHEST XRAY WAS OBTAINED THIS MORNING AND REVEALED: With the COVID history the radiographic findings are suspect for mild atypical pneumonia. No localized consolidation, pulmonary edema or pleural fluid component is noted. A CHEST CTA WAS OBTAINED ON ADMISSION AND REVEALED: No evidence for PTE or other acute cardiopulmonary abnormality. Ascending aortic dilatation measuring 4.5 cm in diameter. Severe coronary artery disease. HE IS CURRENTLY RECEIVING NORMAL SALINE AT 50 ML/HR, REMDESIVIR 100MG IV DAILY, LEVAQUIN 500MG IV DAILY, PULMICORT NEBS BID, XOPENEX NEBS TID, HUMULIN R SLIDING SCALE, OTBS ACHS, TESSALON PERLES 200MG PO TID PRN, ROBITUSSIN DM 10ML PO QID, ZOFRAN 4MG IV Q8H PRN, PROTONIX 40MG IV DAILY, ZINC SULFATE 220MG PO DAILY, VITAMIN C 1000MG BID, TYLENOL 650MG PO Q6H PRN, LOVENOX 40MG SC DAILY, AND HIS HOME MEDICATIONS WERE RESUMED. DUE TO INCREASED BLOOD PRESSURE, WE WILL INCREASE HIS CURRENT HOME MEDICATION OF AMLODIPINE 2.5MG PO HS TO AMLODIPINE 5MG PO HS. 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 - Past Medical Family Social History Past Med/Fam/Surg Hx: No changes since H&P Allergies: Allergies codeine Allergy (Verified 12/25/21 08:37) - Review of Systems ROS: No change since H&P - Vital Signs and I&O's Vital Signs: Temperature 98.3 F Pulse Rate [Left Brachial] 74 Pulse Rate [Right Radial] 73 Pulse Rate 66 Respiratory Rate 20 Blood Pressure [Left Arm] 141/85 Blood Pressure [Right Arm] 172/81 Blood Pressure [Standing] 166/66 Blood Pressure [Sitting] 176/77 Blood Pressure [Lying] 163/70 Blood Pressure 140/63 O2 Sat by Pulse Oximetry 95 Intake and Output: Intake & Output 12/26/21 12/27/21 12/28/21 12/29/21 11:59 11:59 11:59 11:59 Intake Total 1883 3130 / 3130 3589 / 3589 Balance 1883 3130 / 3130 3589 / 3589 - Physical Exam Oriented: Normal Eyes: Normal Ear: Normal Nose: Normal Throat: Normal Respiratory: Diminished, Wheezes (MILD BILATERAL UPPER EXP WHEEZES), Rhonchi Cardiovascular: Normal : Normal Auscultation: Bowel Sounds: Normal Palpation: Normal Tenderness: Normal Skin: Normal Musculoskeletal: Normal Psychiatric: Normal Mood Description: Calm Speech Pattern: Clear, Appropriate - Laboratory and Diagnostics Result Diagrams: 12/28/21 05:51 12/28/21 05:51 Labs: 12/27/21 18:27 Sputum - Expectorated Sputum Sputum Culture - Preliminary 12/27/21 18:27 Sputum - Expectorated Sputum - Final Laboratory WBC 2.5 X10^3/uL (3.6-10.0) L 12/28/21 05:51 RBC 4.66 X10^6/uL (4.7-6.0) L 12/28/21 05:51 Hgb 14.5 g/dL (13.5-18.0) D 12/28/21 05:51 Hct 41.4 % (42.0-54.0) L 12/28/21 05:51 MCV 88.9 fL (80.0-100.0) 12/28/21 05:51 MCH 31.2 pg (27.0-34.0) 12/28/21 05:51 MCHC 35.1 g/dL (33.0-35.0) H 12/28/21 05:51 RDW 13.1 % (11.6-16.5) 12/28/21 05:51 Plt Count 155 X10^3/uL (150.0-450.0) 12/28/21 05:51 Plt Count Comment Decreased (ADEQUATE) 12/27/21 05:24 MPV 7.7 fL (7.4-11.0) 12/28/21 05:51 Neut % (Auto) 40.5 % (42.0-75.0) L 12/28/21 05:51 Lymph % (Auto) 45.6 % (21.0-51.0) 12/28/21 05:51 [place] % (Auto) 12.9 % (0.0-13.0) 12/28/21 05:51 Eos % (Auto) 0.7 % (0.9-2.9) L 12/28/21 05:51 Baso % (Auto) 0.3 % (0.2-1.0) 12/28/21 05:51 Neut # (Auto) 1.0 x10^3/uL (2.2-4.8) L 12/28/21 05:51 Lymph # (Auto) 1.1 X10^3/uL (1.3-2.9) L 12/28/21 05:51 [place] # (Auto) 0.3 x10^3/uL (0.3-0.8) 12/28/21 05:51 Eos # (Auto) 0.0 x10^3/uL (0.0-0.2) 12/28/21 05:51 Baso # (Auto) 0.0 X10^3/uL (0.0-0.1) 12/28/21 05:51 Absolute Nucleated RBC 0.1 /100WBC 12/28/21 05:51 Total Counted 100 12/27/21 05:24 Neutrophils % (Manual) 47 % (39-76) 12/27/21 05:24 Lymphocytes % (Manual) 34 % (13-43) 12/27/21 05:24 Monocytes % (Manual) 14 % (4-9) H 12/27/21 05:24 Eosinophils % (Manual) 2 % (0-6) 12/25/21 08:37 Metamyelocytes % 4 12/27/21 05:24 Myelocytes % 1 12/27/21 05:24 Plt Morphology Comment Normal (NORMAL) 12/27/21 05:24 RBC Morphology Normal (NORMAL) 12/27/21 05:24 D-Dimer 0.82 ug/ml (0.0-0.57) H 12/25/21 08:37 Sodium 135 mmol/L (136-145) L 12/28/21 05:51 Corrected Sodium 137 mmol/L (136-145) 12/28/21 05:51 Potassium 4.1 mmol/L (3.5-5.1) 12/28/21 05:51 Chloride 99 mmol/L (98-107) 12/28/21 05:51 Carbon Dioxide 26.0 mmol/L (21-32) 12/28/21 05:51 BUN 16 mg/dL (7-18) 12/28/21 05:51 Creatinine 1.06 mg/dL (0.70-1.30) 12/28/21 05:51 Est GFR (MDRD) Af Amer > 60 (>60) 12/28/21 05:51 Est GFR (MDRD) Non-Af > 60 (>60) 12/28/21 05:51 Glucose 189 mg/dL (65-99) H 12/28/21 05:51 POC Glucose (mg/dL) 268 mg/dL (65-99) H 12/28/21 11:23 Calcium 8.2 mg/dL (8.5-10.1) L 12/28/21 05:51 Corrected Calcium TNP 12/28/21 05:51 Total Bilirubin 0.30 mg/dL (0.2-1.0) 12/28/21 05:51 AST 52 Units/L (15-37) H 12/28/21 05:51 ALT 46 Units/L (12-78) 12/28/21 05:51 Alkaline Phosphatase 81 Units/L (46-116) 12/28/21 05:51 Creatine Kinase 42 Units/L (39-308) 12/25/21 21:45 Troponin I High Sens 13.6 ng/L (4.0-60.0) 12/25/21 21:45 C-Reactive Protein 4.60 mg/L (0-3.0) H 12/28/21 05:51 B-Natriuretic Peptide 47.4 pg/mL (0-79) 12/28/21 05:51 Total Protein 7.7 g/dL (6.4-8.2) 12/28/21 05:51 Albumin 3.9 g/dL (3.4-5.0) 12/28/21 05:51 Globulin 3.8 g/dL (2.5-4.5) 12/28/21 05:51 Albumin/Globulin Ratio 1.0 Ratio (1.1-2.1) L 12/28/21 05:51 SARS-CoV-2 (PCR) Positive (NEGATIVE) A 12/25/21 13:20 Influenza Type A (PCR) Negative (NEGATIVE) 12/25/21 13:20 Influenza Type B (PCR) Negative (NEGATIVE) 12/25/21 13:20 RSV (PCR) Negative (NEGATIVE) 12/25/21 13:20 - Plan (1) Pneumonia due to COVID-19 virus Status: Acute Plan: SUPPLEMENTAL OXYGEN, NORMAL SALINE AT 50 ML/HR, REMDESIVIR 100MG IV DAILY, LEVAQUIN 500MG IV DAILY, PULMICORT NEBS BID, XOPENEX NEBS TID, HUMULIN R SLIDING SCALE, OTBS ACHS, TESSALON PERLES 200MG PO TID PRN, ROBITUSSIN DM 10ML PO QID, ZOFRAN 4MG IV Q8H PRN, PROTONIX 40MG IV DAILY, ZINC SULFATE 220MG PO DAILY, VITAMIN C 1000MG BID, TYLENOL 650MG PO Q6H PRN, LOVENOX 40MG SC DAILY, AND HIS HOME MEDICATIONS WERE RESUMED. (2) Chest pain Status: Acute Qualifiers: Chest pain type: unspecified Qualified Code(s): R07.9 - Chest pain, unspecified (3) CAD (coronary artery disease) Status: Chronic Qualifiers: Coronary Disease-Associated Artery/Lesion type: unspecified vessel or lesion type [place] vs. transplanted heart: [place] heart Associated angina: unspecified whether angina present Qualified Code(s): I25.10 - Atherosclerotic heart disease of [place] coronary artery without angina pectoris (4) Diabetes Status: Chronic Qualifiers: Diabetes mellitus type: type 2 Diabetes mellitus supervisor long goods insulin use: wit h supervisor long goods use Diabetes mellitus complication status: with hyperglycemia Qualified Code(s): E11.65 - Type 2 diabetes mellitus with hyperglycemia; Z79.4 - [facility] (current) use of insulin
--- NOTE | 2021-12-28 13:33 | PCM.PROG ---
Progress Note - Progress Note for Day of Date of Exam: 12/28/21 - Subjective Subjective: WAS ADMITTED ON 12/25 FOR TREATMENT OF PNEUMONIA DUE TO COVID-19, CHEST PAIN, AND SHORTNESS OF BREATH. HE HAS A PMH OF DM II, [place], SEVERE CAD, HTN. HE HAS CARDIAC STENTS AND HAS HAD LEFT ENDARTERECTOMY. TODAY, HE IS ALERT AND ORIENTED, LYING IN BED ON MORNING ROUNDS. HE CONTINUES WITH COMPLAINTS OF COUGH, SHORTNESS OF BREATH, AND GENERALIZED WEAKNESS. HE ALSO COMPLAINS OF INTERMITTENT CHEST DISCOMFORT AND TIGHTNESS. CARDIAC ENZYMES HAVE BEEN NORMAL. ON EXAMINATION, HEART IS REGULAR IN RATE AND RHYTHM. BILATERAL LUNGS ARE NOTED WITH RHONCHI THROUGHOUT. ABDOMEN IS ROUND, SOFT, AND NON-TENDER WITH NORMAL BOWEL SOUNDS NOTED IN ALL QUADRANTS. NO UPPER OR LOWER EXTREMITY EDEMA IS NOTED. HER VITALS THIS MORNING ARE: 98.3-74-20-99%-141/85. LABS WERE OBTAINED. WBC 2.5, RBC 4.66, HGB 14.5, HCT 41.4, PLT COUNT 155, SODIUM 134, POTASSIUM 4.0, BUN 14, CREATININE 1.00, GLUCOSE 162, CALCIUM 7.6, AST 57, ALT 44, ALK PHOS 65, CRP 7.20, BNP 88.7, TOTAL PROTEIN 6.5, ALBUMIN 3.3. RESPIRATORY VITAL PANEL WAS SET UP. A SPUTUM CULTURE WAS COLLECTED LAST NIGHT. A CHEST XRAY WAS OBTAINED THIS MO RNING AND REVEALED: Cardiac and mediastinal contours are within normal limits. Similar appearance of mild bilateral interstitial opacities. No consolidation or segmental lung collapse. No definite pleural effusion or pneumothorax. A CHEST CTA WAS OBTAINED ON ADMISSION AND REVEALED: No evidence for PTE or other acute cardiopulmonary abnormality. Ascending aortic dilatation measuring 4.5 cm in diameter. Severe coronary artery disease. HE IS CURRENTLY RECEIVING NORMAL SALINE AT 50 ML/HR, REMDESIVIR 100MG IV DAILY, LEVAQUIN 500MG IV DAILY, PULMICORT NEBS BID, XOPENEX NEBS TID, HUMULIN R SLIDING SCALE, OTBS ACHS, TESSALON PERLES 200MG PO TID PRN, ROBITUSSIN DM 10ML PO QID, ZOFRAN 4MG IV Q8H PRN, PROTONIX 40MG IV DAILY, ZINC SULFATE 220MG PO DAILY, VITAMIN C 1000MG BID, TYLENOL 650MG PO Q6H PRN, LOVENOX 40MG SC DAILY, AMLODIPINE 5MG PO HS, AND HIS HOME MEDICATIONS WERE RESUMED. 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 OTHERWISE, WE WILL CONTINUE WITH CURRENT PLAN OF CARE TODAY. WE WILL FOLLOW-UP WITH AM LABS AND CONTINUE TO MONITOR. TIME SPENT ON CLINICAL ASSESSMENT, REVIWING LABS AND IMAGING, DECISION MAKING, AND DOCUMENTATION GREATER THAN 45 MINUTES. - Past Medical Family Social History Past Med/Fam/Surg Hx: No changes since H&P Allergies: Allergies codeine Allergy (Verified 12/25/21 08:37) - Review of Systems ROS: No change since H&P - Vital Signs and I&O's Vital Signs: Temperature 98.8 F Pulse Rate [Left Brachial] 59 Pulse Rate [Right Radial] 73 Pulse Rate 66 Respiratory Rate 18 Blood Pressure [Left Arm] 142/72 Blood Pressure [Right Arm] 172/81 Blood Pressure [Standing] 166/66 Blood Pressure [Sitting] 176/77 Blood Pressure [Lying] 163/70 Blood Pressure 140/63 O2 Sat by Pulse Oximetry 98 Intake and Output: Intake & Output 12/26/21 12/27/21 12/28/21 12/29/21 11:59 11:59 11:59 11:59 Intake Total 1883 / 1883 3130 / 3130 3589 / 3589 Balance 1883 3130 / 3130 3589 / 3589 - Physical Exam Oriented: Normal Eyes: Normal Ear: Normal Nose: Normal Throat: Normal Respiratory: Diminished, Wheezes (MILD BILATERAL UPPER EXP WHEEZES), Rhonchi Cardiovascular: Normal : Normal Auscultation: Bowel Sounds: Normal Palpation: Normal Tenderness: Normal Skin: Normal Musculoskeletal: Normal Psychiatric: Normal Mood Description: Calm Speech Pattern: Clear, Appropriate - Laboratory and Diagnostics Result Diagrams: 12/28/21 05:51 12/28/21 05:51 Labs: 12/27/21 18:27 Sputum - Expectorated Sputum Sputum Culture - Preliminary 12/27/21 18:27 Sputum - Expectorated Sputum - Final Laboratory WBC 2.5 X10^3/uL (3.6-10.0) L 12/28/21 05:51 RBC 4.66 X10^6/uL (4.7-6.0) L 12/28/21 05:51 Hgb 14.5 g/dL (13.5-18.0) D 12/28/21 05:51 Hct 41.4 % (42.0-54.0) L 12/28/21 05:51 MCV 88.9 fL (80.0-100.0) 12/28/21 05:51 MCH 31.2 pg (27.0-34.0) 12/28/21 05:51 MCHC 35.1 g/dL (33.0-35.0) H 12/28/21 05:51 RDW 13.1 % (11.6-16.5) 12/28/21 05:51 Plt Count 155 X10^3/uL (150.0-450.0) 12/28/21 05:51 Plt Count Comment Decreased (ADEQUATE) 12/27/21 05:24 MPV 7.7 fL (7.4-11.0) 12/28/21 05:51 Neut % (Auto) 40.5 % (42.0-75.0) L 12/28/21 05:51 Lymph % (Auto) 45.6 % (21.0-51.0) 12/28/21 05:51 [place] % (Auto) 12.9 % (0.0-13.0) 12/28/21 05:51 Eos % (Auto) 0.7 % (0.9-2.9) L 12/28/21 05:51 Baso % (Auto) 0.3 % (0.2-1.0) 12/28/21 05:51 Neut # (Auto) 1.0 x10^3/uL (2.2-4.8) L 12/28/21 05:51 Lymph # (Auto) 1.1 X10^3/uL (1.3-2.9) L 12/28/21 05:51 [place] # (Auto) 0.3 x10^3/uL (0.3-0.8) 12/28/21 05:51 Eos # (Auto) 0.0 x10^3/uL (0.0-0.2) 12/28/21 05:51 Baso # (Auto) 0.0 X10^3/uL (0.0-0.1) 12/28/21 05:51 Absolute Nucleated RBC 0.1 /100WBC 12/28/21 05:51 Total Counted 100 12/27/21 05:24 Neutrophils % (Manual) 47 % (39-76) 12/27/21 05:24 Lymphocytes % (Manual) 34 % (13-43) 12/27/21 05:24 Monocytes % (Manual) 14 % (4-9) H 12/27/21 05:24 Eosinophils % (Manual) 2 % (0-6) 12/25/21 08:37 Metamyelocytes % 4 12/27/21 05:24 Myelocytes % 1 12/27/21 05:24 Plt Morphology Comment Normal (NORMAL) 12/27/21 05:24 RBC Morphology Normal (NORMAL) 12/27/21 05:24 D-Dimer 0.82 ug/ml (0.0-0.57) H 12/25/21 08:37 Sodium 135 mmol/L (136-145) L 12/28/21 05:51 Corrected Sodium 137 mmol/L (136-145) 12/28/21 05:51 Potassium 4.1 mmol/L (3.5-5.1) 12/28/21 05:51 Chloride 99 mmol/L (98-107) 12/28/21 05:51 Carbon Dioxide 26.0 mmol/L (21-32) 12/28/21 05:51 BUN 16 mg/dL (7-18) 12/28/21 05:51 Creatinine 1.06 mg/dL (0.70-1.30) 12/28/21 05:51 Est GFR (MDRD) Af Amer > 60 (>60) 12/28/21 05:51 Est GFR (MDRD) Non-Af > 60 (>60) 12/28/21 05:51 Glucose 189 mg/dL (65-99) H 12/28/21 05:51 POC Glucose (mg/dL) 268 mg/dL (65-99) H 12/28/21 11:23 Calcium 8.2 mg/dL (8.5-10.1) L 12/28/21 05:51 Corrected Calcium TNP 12/28/21 05:51 Total Bilirubin 0.30 mg/dL (0.2-1.0) 12/28/21 05:51 AST 52 Units/L (15-37) H 12/28/21 05:51 ALT 46 Units/L (12-78) 12/28/21 05:51 Alkaline Phosphatase 81 Units/L (46-116) 12/28/21 05:51 Creatine Kinase 42 Units/L (39-308) 12/25/21 21:45 Troponin I High Sens 13.6 ng/L (4.0-60.0) 12/25/21 21:45 C-Reactive Protein 4.60 mg/L (0-3.0) H 12/28/21 05:51 B-Natriuretic Peptide 47.4 pg/mL (0-79) 12/28/21 05:51 Total Protein 7.7 g/dL (6.4-8.2) 12/28/21 05:51 Albumin 3.9 g/dL (3.4-5.0) 12/28/21 05:51 Globulin 3.8 g/dL (2.5-4.5) 12/28/21 05:51 Albumin/Globulin Ratio 1.0 Ratio (1.1-2.1) L 12/28/21 05:51 SARS-CoV-2 (PCR) Positive (NEGATIVE) A 12/25/21 13:20 Influenza Type A (PCR) Negative (NEGATIVE) 12/25/21 13:20 Influenza Type B (PCR) Negative (NEGATIVE) 12/25/21 13:20 RSV (PCR) Negative (NEGATIVE) 12/25/21 13:20 - Plan (1) Pneumonia due to COVID-19 virus Status: Acute Plan: SUPPLEMENTAL OXYGEN, NORMAL SALINE AT 50 ML/HR, REMDESIVIR 100MG IV DAILY, LEVAQUIN 500MG IV DAILY, PULMICORT NEBS BID, XOPENEX NEBS TID, HUMULIN R SLIDING SCALE, OTBS ACHS, TESSALON PERLES 200MG PO TID PRN, ROBITUSSIN DM 10ML PO QID, ZOFRAN 4MG IV Q8H PRN, PROTONIX 40MG IV DAILY, ZINC SULFATE 220MG PO DAILY, VITAMIN C 1000MG BID, TYLENOL 650MG PO Q6H PRN, LOVENOX 40MG SC DAILY, AND HIS HOME MEDICATIONS WERE RESUMED. (2) Chest pain Status: Acute Qualifiers: Chest pain type: unspecified Qualified Code(s): R07.9 - Chest pain, unspecified Plan: CONSULT CARDIOLOGY (3) CAD (coronary artery disease) Status: Chronic Qualifiers: Coronary Disease-Associated Artery/Lesion type: unspecified vessel or lesion type [place] vs. transplanted heart: [place] heart Associated angina: unspecified whether angina present Qualified Code(s): I25.10 - Atherosclerotic heart disease of [place] coronary artery without angina pectoris (4) Diabetes Status: Chronic Qualifiers: Diabetes mellitus type: type 2 Diabetes mellitus watermelon inspector insulin use: with watermelon inspector use Diabetes mellitus complication status: with hyperglycemia Qualified Code(s): E11.65 - Type 2 diabetes mellitus with hyperglycemia; Z79.4 - continuous churn buttermaker (current) use of insulin
[2021-12-28] MEDS: SNACK - Diabetic Appropriate PO SCH (20:27)
[2021-12-28] MEDS: COLACE CAP 100 MG PO SCH (20:27)
[2021-12-28] MEDS: NORVASC TAB 5 MG PO SCH (20:28)
[2021-12-28] MEDS: CRESTOR TAB 10 MG PO SCH (20:28)
[2021-12-28] MEDS: TESSALON PERLES PO PRN (20:29)
[2021-12-29] MEDS: XOPENEX 1.25 MG/3 ML NEBULE NEB SCH (05:37)
[2021-12-29 05:40] LABS: BASOPHILS % (AUTO) 0.3 % (0.2-1.0); EOSINOPHILS % (AUTO) 1.7 % (0.9-2.9); HEMATOCRIT 37.8 % (42.0-54.0); HEMOGLOBIN 13.2 g/dL (13.5-18.0); LYMPHOCYTES % (AUTO) 48.9 % (21.0-51.0); MEAN CORPUSCULAR HGB CONC 34.9 g/dL (33.0-35.0); MEAN CORPUSCULAR VOLUME 88.8 fL (80.0-100.0); MEAN PLATELET VOLUME 7.3 fL (7.4-11.0); MONOCYTES # (AUTO) 0.3 x10^3/uL (0.3-0.8); NEUTROPHILS # (AUTO) 0.7 x10^3/uL (2.2-4.8); NEUTROPHILS % (AUTO) 36.1 % (42.0-75.0); RED BLOOD COUNT 4.26 X10^6/uL (4.7-6.0); RED CELL DISTRIBUTION WIDTH 13.1 % (11.6-16.5); WHITE BLOOD COUNT 2.1 X10^3/uL (3.6-10.0)
[2021-12-29 05:54] LABS: ALANINE AMINOTRANSFERASE 36 Units/L (12-78); ALBUMIN 3.2 g/dL (3.4-5.0); ALKALINE PHOSPHATASE 69 Units/L (46-116); ASPARTATE AMINO TRANSFERASE 38 Units/L (15-37); BLOOD UREA NITROGEN 12 mg/dL (7-18); CARBON DIOXIDE 26.8 mmol/L (21-32); CHLORIDE 103 mmol/L (98-107); COR CA(FOR HYPOALB) 8.6 mg/dL (8.5-10.1); COR NA(FOR HYPERGLY) 139 mmol/L (136-145); CREATININE 0.97 mg/dL (0.70-1.30); SODIUM 138 mmol/L (136-145); TOTAL PROTEIN 6.5 g/dL (6.4-8.2); eGFR NON BLACK RACES > 60 (>60)
[2021-12-29 06:01] LABS: BAND NEUTROPHILS % 2 % (0-10); PLATELET MORPHOLOGY COMMENT NORMAL (NORMAL)
--- NOTE | 2021-12-29 06:23 | RAD ---
HISTORYShortness of breathSTUDYChest AP [id number] t size is normal. Lauren are normal. The aorta is calcified. The lungs are mildly hypoinflated but free of acute infiltrates. No pleural effusions are identified. Bony thorax is unremarkable.IMPRESSIONLungs mildly hypoinflated but free of acute infiltrates.Electronically signed by: SHALONDA IGLESIAS (Dec 29, 2021 06:21:53)
[2021-12-29] MEDS ORDERED: ZESTRIL TAB 20 MG ONE (07:44)
[2021-12-29] MEDS: LEVAQUIN PREMIX IV 500 MG 500 MG/100 ML BAG IV SCH (08:24)
[2021-12-29] MEDS: PROTONIX INJ 40 MG VIAL IVP SCH (08:27)
[2021-12-29] MEDS: LOVENOX INJ 40 MG SYR SC SCH (08:28)
[2021-12-29] MEDS: SYNTHROID 50 mcg TAB PO SCH (08:29)
[2021-12-29] MEDS: ROBITUSSIN DM PO SCH (08:29)
[2021-12-29] MEDS: ASPIRIN EC 81 MG PO SCH (08:29)
[2021-12-29] MEDS: ZINC SULFATE PO SCH (08:29)
[2021-12-29] MEDS: VITAMIN D3 125 mcg (5,000 UNITS) PO SCH (08:29)
[2021-12-29] MEDS: VITAMIN C PO SCH (08:29)
[2021-12-29] MEDS: PLAVIX PO SCH (08:30)
[2021-12-29] MEDS: MILK OF MAGNESIA PO SCH (08:30)
[2021-12-29] MEDS: TOPROL XL PO SCH (08:30)
[2021-12-29] MEDS: ZESTRIL TAB 20 MG PO SCH (08:30)
[2021-12-29] MEDS: PULMICORT NEB TX 0.5 MG NEB SCH (08:30)
[2021-12-29 09:45] VITALS: BP 160/87
[2021-12-29] MEDS ORDERED: REMDESIVIR 200 MG in NS 100 ML IV 140 ML IV NR (10:00)
[2021-12-29] MEDS: NS 1,000 ML IV 1,000 ML IV SCH (10:46)
[2021-12-29] MEDS: NovoLIN R (or HumuLIN R) SUBCUT PRN (11:47)
[2021-12-29] MEDS ORDERED: XARELTO PO SCH (21:00)
== END 2021-12-29 12:55 | disposition home or self-care (01) ==
LOC: MED/SURG 08:22 → ER 08:22 → MED/SURG 13:54
PROVIDERS: ADMIT Internal Medicine; ATTEND Internal Medicine
DX: I25.10 Atherosclerotic heart disease of native coronary artery without angina pectoris; U07.1 COVID-19; R06.02 Shortness of breath; Z79.4 Long term (current) use of insulin; Z86.79 Personal history of other diseases of the circulatory system; R20.0 Anesthesia of skin; R07.89 Other chest pain; I10 Essential (primary) hypertension; E11.65 Type 2 diabetes mellitus with hyperglycemia; J12.82 Pneumonia due to coronavirus disease 2019